=== PATIENT | female | born 1995 | race Caucasian/White ===

== ENCOUNTER 2023-10-04 14:21 | Emergency (ER) | payer MEDICAID, OTHER ==
[2023-10-04 14:46] VITALS: PULSE 108; TEMP 97
[2023-10-04] MEDS ORDERED: TORAdol 30 mg Injection ONE (14:52)
[2023-10-04] MEDS ORDERED: DECADRON 10MG INJ. ONE (14:52)
[2023-10-04] MEDS: DECADRON 10MG INJ. IM ONE (14:55)
[2023-10-04] MEDS: TORAdol 30 mg Injection IM ONE (14:55)
[2023-10-04 16:06] VITALS: O2SAT 96
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
[2023-10-04 16:41] LABS: HCG URINE TEST NEGATIVE (NEGATIVE)
[2023-10-04 16:46] LABS: Appearance Clear (Clear); Bacteria None Seen /HPF (None Seen); Bilirubin Negative (Negative); Blood Moderate (Negative); Epithelial Cells None Seen /HPF (None Seen); Glucose, Urine Negative (Negative); Hyaline Casts NONE SEEN /LPF (0-2); Ketones Negative (Negative); Leukocyte Esterase Negative (Negative); Nitrite Negative (Negative); Ph 5.5 (4.6-8.0); Protein,Urine Dip Negative (Negative); RBC 0-2 /HPF (0-5); Urobilinogen 0.2 mg/dL (0.2); WBC 0-2 /HPF (0-5)
[2023-10-04 16:47] LABS: ADD URINE CULTURE? NO (NO)
[2023-10-04 17:32] VITALS: RESP 16
[2023-10-04] MEDS ORDERED: ZOFRAN ODT 4 MG ONE (17:52)
[2023-10-04] MEDS: ZOFRAN ODT 4 MG PO ONE (17:53)
[2023-10-04 18:22] VITALS: BP 127/65
[2023-10-04] MEDS ORDERED: Cyclobenzaprine 10 MG PO SCH (22:00)
--- NOTE | 2023-10-05 08:36 | XRAY ---
Indication: Low back pain 8 days. No known injury status. Multiple contiguous axial images obtained through the lumbar spine. Sagittal and coronal reformatted images obtained. Comparison: None Axial images demonstrates mild broad-based disc bulge at L4-L5 and lesser degree at L3-L4 disc levels. No acute fracture, suspicious bony lesions, or spinal canal stenosis. Facets are symmetric. Sagittal and coronal reformatted images demonstrates normal alignment with vertebral body heights/disc spaces maintained. No acute compression fracture or subluxation. Visualized noncontrasted soft tissues are unremarkable. Impression: Broad-based disc bulge L3-L5 disc levels better evaluated with MRI exam.
== END 2023-10-04 18:46 | disposition home or self-care (01) ==
LOC: ED 14:21
DX: M51.16 Intervertebral disc disorders with radiculopathy, lumbar region (principal); Z79.899 Other long term (current) drug therapy
CPT/HCPCS: 72131; 81001; 81025; 96372; 99284; J1100; J1885; Q0162

== ENCOUNTER 2024-10-03 13:07 | Day surgery (SDC) | payer OTHER ==
[2024-10-03] MEDS ORDERED: Depo-Medrol 40 MG/ML IM ONE (13:08)
[2024-10-03] MEDS ORDERED: Sodium Chloride 0.9(Preservative Free) 10 ML IJ ONE (13:08)
[2024-10-03 13:18] LABS: HCG URINE TEST NEGATIVE (NEGATIVE)
[2024-10-03] MEDS ORDERED: propofoL IV ONE ×2 (14:26→14:34)
[2024-10-03] MEDS ORDERED: DILAUDID 0.5 MG/0.5 ML SYRINGE IV ONE (15:00)
--- NOTE | 2024-10-03 15:20 | XRAY ---
Indication: Caudal JANE. Intraoperative fluoroscopy provided for 18 seconds. 2 digital spot image submitted for interpretation demonstrates caudal needle tip projecting mid sacrum. Small amount of contrast injected for needle tip placement. Correlate with intraoperative findings/report.
--- NOTE | 2024-10-03 15:22 | XRAY ---
18 seconds of fluoroscopy was used in surgery for a caudal JANE.
== END 2024-10-03 15:30 | disposition home or self-care (01) ==
LOC: SDC-PAIN 13:07
PROVIDERS: ATTEND Psychiatry & Neurology Pain Medicine
DX: M54.16 Radiculopathy, lumbar region (principal)
CPT/HCPCS: 62323; 72220; 81025; J1171; J2704; Q9966

== ENCOUNTER → 2024-10-31 | Day surgery (SDC) | payer OTHER ==
[~2024-10-31] MED LIST: BENADRYL 50 MG/ML ONE; DILAUDID 0.5 MG/0.5 ML SYRINGE ONE; Lactated Ringers IV ONE; Zofran 4 MG/2 ML VIAL ONE
[2024-10-31 13:53] LABS: HCG URINE TEST NEGATIVE (NEGATIVE)
== END ==
LOC: SDC-PAIN 12:17
PROVIDERS: ATTEND Psychiatry & Neurology Pain Medicine
DX: G43.909 Migraine, unspecified, not intractable, without status migrainosus (principal)
CPT/HCPCS: 81025; J1171; J1200; J2405